=== PATIENT | female | born 1995 | race Caucasian/White ===

== ENCOUNTER 2017-03-06 08:33 | Emergency (ER) | payer MEDICAID, OTHER ==
[~2017-03-06] VITALS: Ht 144.8 cm; Wt 61.6 kg
[~2017-03-06 08:33] MED LIST: IBUP800T PO; OXYC-302 PO
[2017-03-06 08:36] VITALS: BP 120/81
[2017-03-06] MEDS ORDERED: KETOROLAC 30 MG/1 ML IM ONE (09:30)
[2017-03-06] MEDS ORDERED: KETOROLAC 30 MG/1 ML ONE (09:37)
== END 2017-03-06 09:44 | disposition home or self-care (01) ==
LOC: ED 09:17
DX: H66.001 Acute suppurative otitis media without spontaneous rupture of ear drum, right ear (principal); H60.501 Unspecified acute noninfective otitis externa, right ear
CPT/HCPCS: 96372; 99283; J1885

== ENCOUNTER → 2018-05-07 | Outpatient (CLI) | payer BC ==
[~2018-05-07] MED LIST changes: +IBUP-1223 PO; -IBUP800T PO
== END | disposition home or self-care (01) ==
LOC: CFH 09:11
PROVIDERS: ATTEND Internal Medicine Gastroenterology
DX: K75.4 Autoimmune hepatitis (principal); K76.0 Fatty (change of) liver, not elsewhere classified; E55.9 Vitamin D deficiency, unspecified; R74.0 Nonspecific elevation of levels of transaminase and lactic acid dehydrogenase [LDH]
CPT/HCPCS: 76700

== ENCOUNTER 2020-09-17 16:58 | Emergency (ER) | payer BC, MEDICAID ==
[~2020-09-17] VITALS: Ht 149.9 cm; Wt 65.3 kg
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
--- NOTE | 2020-09-17 18:24 | NUR ---
pt requesting pain meds at this time. rn looking for stephan rondon at this time. wctm.
[2020-09-17] MEDS ORDERED: HYDROcodone/APAP 5/325 TABLET ONE (18:33)
--- NOTE | 2020-09-17 18:36 | NUR ---
PT MEDICATED PER [facility] FOR PAIN, NAD, DENIES ADDITIONAL NEEDS AT THIS TIME, NO CHANGE IN CONDITION, WCTM. WAITING FOR RAD READ
[2020-09-17] MEDS ORDERED: HYDROcodone/APAP 5/325 TABLET PO ONE (19:00)
[2020-09-17 19:29] VITALS: BP 117/74
--- NOTE | 2020-09-17 19:34 | NUR ---
Patient given discharge instructions and they have confirmed that they understand the instructions. Patient ambulatory with steady gait. Verbalized follow-up and splint instructions.
== END 2020-09-17 19:36 | disposition home or self-care (01) ==
LOC: ED 17:42
DX: M25.531 Pain in right wrist (principal); Z90.89 Acquired absence of other organs; W01.0XXA Fall on same level from slipping, tripping and stumbling without subsequent striking against object, initial encounter; Y93.89 Activity, other specified; Y92.89 Other specified places as the place of occurrence of the external cause; Y99.8 Other external cause status
CPT/HCPCS: 29125; 99284

== ENCOUNTER 2021-02-03 11:24 | Emergency (ER) | payer MEDICAID ==
[~2021-02-03] VITALS: Ht 149.9 cm; Wt 65.4 kg
[~2021-02-03 11:24] MED LIST changes: -OXYC-302 PO; +OXYC1TAB14 PO
--- NOTE | 2021-02-03 11:56 | NUR ---
ASSUMED CARE OF PT, POC DISCUSSED. PT HAS NO HOME MEDS.
[2021-02-03] MEDS ORDERED: METHOCARBAMOL 750 MG TABLET PO ONE (12:00)
[2021-02-03] MEDS ORDERED: KETOROLAC 30 MG/1 ML IM ONE (12:00)
[2021-02-03] MEDS ORDERED: METHOCARBAMOL 750 MG TABLET ONE (12:01)
[2021-02-03] MEDS ORDERED: KETOROLAC 60 MG/2 ML ONE (12:01)
[2021-02-03 12:47] LABS: MICROSCOPIC AUTO
[2021-02-03 13:54] VITALS: BP 125/82
== END 2021-02-03 13:58 | disposition home or self-care (01) ==
LOC: ED 12:26
DX: S39.012A Strain of muscle, fascia and tendon of lower back, initial encounter (principal); M54.6 Pain in thoracic spine; X58.XXXA Exposure to other specified factors, initial encounter; Y93.89 Activity, other specified; Y92.89 Other specified places as the place of occurrence of the external cause; Y99.8 Other external cause status
CPT/HCPCS: 81001; 87086; 96372; 99283; J1885